=== PATIENT | male | born 1950 | race Caucasian/White ===

== ENCOUNTER 2018-11-12 19:53 | Emergency (ER) | payer OTHER ==
--- OUTSIDE RECORDS SUMMARY | 2018-11-12 19:54 | XMS REPORT | Clinical Summary ---
:1950 Author Organization [facility] Address [address] [place] [address] Care Team Providers Name Role Phone Basilio Tello MD Primary Care Provider Allergies No Known Allergies Medications Medication Sig Dispensed Refills Start Date End Date Status levothyroxine Take 100 mcg by 0 Active (SYNTHROID, LEVOTHROID) mouth daily. 100 MCG tablet omeprazole (PRILOSEC) 20 Take 20 mg by 0 Active MG capsule mouth daily. fexofenadine (SEAMUS) Take 180 mg by 0 Active 180 MG tablet mouth 2 (two) times daily. tamsulosin (FLOMAX) 0.4 Take 0.8 mg by 0 Active mg Cp24 24 hr capsule mouth 2 (two) times daily . buPROPion (WELLBUTRIN Take 450 mg by 0 Active XL) 300 MG 24 hr tablet mouth daily . losartan (COZAAR) 25 MG Take 25 mg by 0 Active tablet mouth daily. metFORMIN (GLUCOPHAGE) Take 500 mg by 0 Active 500 MG tablet mouth daily with breakfast. HYDROcodone-acetaminophe Take 1 tablet by 0 Active n (LORTAB 10-500) 10-500 mouth every 6 mg per tablet (six) hours as needed. carisoprodol (SOMA) 350 Take 350 mg by 0 Active MG tablet mouth 4 (four) times daily as needed. HYDROcodone-acetaminophe Take 1 tablet by 0 Active n (NORCO 10-325) 10-325 mouth every 6 mg per tablet (six) hours as needed for Pain. aspirin 81 MG EC tablet Take 81 mg by 0 Active mouth daily. clopidogrel (PLAVIX) 75 Take 75 mg by 0 Active mg tablet mouth daily. pregabalin (LYRICA) 75 Take 75 mg by 0 Active MG capsule mouth 2 (two) times daily. rosuvastatin (CRESTOR) Take 20 mg by 0 Active 20 MG tablet mouth daily. montelukast (SINGULAIR) Take 10 mg by 0 Active 10 mg tablet mouth nightly. ARIPiprazole (ABILIFY) 5 Take 2 mg by 0 Active MG tablet mouth daily. Active Problems Not on file Social History Tobacco Use Types Packs/Day Years Used Date Never Smoker Smokeless Tobacco: Current User Snuff Tobacco Cessation: Counseling Given: No Comments: PATIENT DIP; 1/d; previously educated Alcohol Use Drinks/Week oz/Week Comments Yes 1 Cans of beer 1.2 14 beers/wk 1 Shots of liquor Sex Assigned at Date Recorded Not on file Job Start Date Occupation Industry Not on file Not on file Not on file Travel History Travel Start Travel End No recent travel history available. Last Filed Vital Signs Not on file Plan of Treatment Not on file Results Not on fileafter 11/11/2017 Insurance Payer Benefit Plan / Group Subscriber ID Type Phone Address HUMANA - MEDICARE MGD HUMANA MEDICARE ADV xxxxxxxxx Maps Contracted CARE Advance Directives For more information, please contact:[address] [phone] Code Status Date Activated Date Inactivated Comments Code ONE 11/02/2013 11:57 AM 11/02/2013 4:38 PM All possible means of support, including: cardiac massage, mechanical ventilation, and defibrillation will be used to support life.
--- OUTSIDE RECORDS SUMMARY | 2018-11-12 19:55 | XMS REPORT ---
:1950 [facility] Address [address] [place] [address] Dr. Winston [address] [place] [address] Care Team Providers Name Role Phone MAXIM BEACH Unavailable Unavailable Problems This patient has no known problems. Allergies, Adverse Reactions, Alerts This patient has no known allergies or adverse reactions. Medications This patient has no known medications. Results Test Description Test Time Test Comments Text Results Atomic Results Result Comments TISSUE EXAM 2016-12-10 18:24:00 Test Item Value Reference Range Comments LAB AP CPT CODE (JANINE) (test [id number]) [id number]
--- OUTSIDE RECORDS SUMMARY | 2018-11-12 19:55 | XMS REPORT | Summary of Care ---
:1950 Author Name SAVANNA FENTON Address [facility] Unavailable , Care Team Providers Name Role Phone TANIA TRAVIS D.O. 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 On: 18-Nov-2018 13:00 Instructions Name Dates Details Instructions not documented Encounters Appointment; TANIA TRAVIS D.O. On: 07-Oct-2018 14:30 Encounter Diagnosis: Problem not documented Appointment; TANIA TRAVIS D.O. On: 05-Nov-2018 8:30 Encounter Diagnosis: Problem not documented
--- NOTE | 2018-11-12 21:26 | RAD REPORT ---
EXAM DESCRIPTION: USExtrem Venous W Compress Bil11/12/2018 9:14 pm CLINICAL HISTORY: Leg pain COMPARISON: August 2018 FINDINGS: A left chods-uti-jaak amputation is present The common femoral, and superficial superficial femoral veins bilaterally are compressible and demons trate augmentation. The right popliteal and posterior tibial veins are compressible and demonstrate augmentation. Doppler demonstrates good flow. Echogenic material consistent with acute thrombus is present within the right lesser saphenous vein w ithin the calf. IMPRESSION: No evidence of deep venous thrombosis involving either lower extremity. Acute thrombus within the lesser saphenous vein within the right calf
--- NOTE | 2018-11-12 22:25 | ER ---
Nurse's Notes [facility] Name: Joey Campos III Age: 68 yrs Sex: Male : 1950 Arrival Date: 11/12/2018 Time: 19:57 Bed 17 Private MD: Basilio Tello Diagnosis: Embolism and thrombosis of superficial veins of right lower extremities Presentation: 11/12 20:22 Presenting complaint: Patient states: knot on right leg behind the knee started ak1 yesterday. pt c/o increased pain and size to area. Transition of care: patient was not received from another setting of care. Onset of symptoms is unknown. Risk Assessment: Do you want to hurt yourself or someone else? Patient reports no desire to harm self or others. Initial Sepsis Screen: Does the patient meet any 2 criteria? No. Patient's initial sepsis screen is negative. Does the patient have a suspected source of infection? No. Patient's initial sepsis screen is negative. Care prior to arrival: pt had sx 11/05/18 on left lower leg. 20:22 Method Of Arrival: Ambulatory ak1 20:22 Acuity: ROSALINDA 3 ak1 Triage Assessment: 20:27 General: Appears in no apparent distress. Behavior is calm, cooperative. ak1 Historical: - Allergies: 20:27 No Known Allergies; ak1 - Home Meds: 20:27 aspirin 81 mg Oral chew 1 tab once daily [Active]; omeprazole 40 mg Oral cpDR 1 cap ak1 once daily [Active]; levothyroxine 100 mcg tab 1 tab once daily [Active]; Flomax 0.4 mg Oral cp24 1 cap BID [Active]; losartan 25 mg oral tab 1 tab once daily [Active]; Crestor 20 mg oral tab 1 tab once daily [Active]; Wellbutrin 300mg Oral daily [Active]; hydrocodone-acetaminophen 10-325 mg Oral tab prn [Active]; - PSHx: 20:27 left BK amputation; ak1 - Immunization history:: Adult Immunizations unknown. - Social history:: Smoking status: Patient/guardian denies using tobacco. - Ebola Screening: : No symptoms or risks identified at this time. Screenin:29 Abuse screen: Denies threats or abuse. Denies injuries from another. Nutritional ak1 screening: No deficits noted. Tuberculosis screening: No symptoms or risk factors identified. Fall Risk Ambulatory Aid- Crutches/Cane/Walker (15 pts). Assessment: 21:44 General: Appears in no apparent distress. Pain: Denies pain. Neuro: No deficits noted. ls4 Cardiovascular: No deficits noted. Respiratory: No deficits noted. GI: No deficits noted. : No deficits noted. Musculoskeletal: Amputation of left leg. Circulation, motion, and sensation intact. Capillary refill < 3 seconds, Range of motion: intact in all extremities, Swelling absent. 22:19 Reassessment: pt standing at ER17 door ready to leave stated ERP was in "15 minuets ak1 ago, what am I waiting for" pt informed that the provider is typing up his discharge papers. Vital Signs: 20:27 BP 112 / 70; Pulse 72; Resp 16; Temp 99.4(O); Pulse Ox 98% on R/A; Weight 86.18 kg (R); ak1 Height 5 ft. 6 in. (167.64 cm) (R); Pain 0/10; 20:27 Body Mass Index 30.67 (86.18 kg, 167.64 cm) ak1 20:27 increased pain with palpation. ak1 ED Course: 19:57 Patient arrived in ED. es 19:58 Basilio Tello MD is Private Physician. es 20:23 Triage completed. ak1 20:27 Arm band placed on Patient placed in waiting room, Patient notified of wait time. ak1 21:06 Ganesh Bullard MD is Attending Physician. gs 21:07 Kalpana Chaudhari, RN is Primary Nurse. ls4 21:07 No provider procedures requiring assistance completed. ls4 21:15 Extrem Venous W Compression Tomás US In Process Unspecified. EDMS 21:48 Patient has correct armband on for positive identification. Bed in low position. Call ls4 light in reach. Side rails up X 1. 22:21 Patient did not have IV access during this emergency room visit. ak1 Administered Medications: No medications were administered Outcome: 22:21 Condition: stable ak1 22:25 Discharge ordered by . gs 22:28 Eloped from patient exam room, Time discovered patient gone: November 12, 2018 at 22:29 ak1 pt was not in room when this nurse returned with discharge papers. 22:28 Discharge instructions given to no instructions given due to pt eloping prior to instructions. 22:30 Patient left the ED. ak1 Signatures: Dispatcher [employer] Yenny Tapia Amber RN RN ak1 Ganesh Bullard MD MD gs Stewart, Lisa, RN RN ls4
--- NOTE | 2018-11-12 22:25 | EDPHYS ---
Physician Documentation [facility] Name: Joey Campos III Age: 68 yrs Sex: Male : 1950 Arrival Date: 11/12/2018 Time: 19:57 Bed 17 Private MD: Basilio Tello ED Physician Ganesh Bullard HPI: 11/12 22:18 This 68 yrs old Male presents to ER via Ambulatory with complaints of Knot on gs back of leg after surgery. 22:18 The patient presents with pain, that is acute. The complaints affect the posterior gs aspect of right knee. Context: small erythematous knot 2x2 cm back of right knee. Onset: The symptoms/episode began/occurred yesterday. Associated signs and symptoms: Pertinent negatives fever, numbness. Severity of symptoms: At their worst the symptoms were moderate, in the emergency department the symptoms are unchanged. The patient has not experienced similar symptoms in the past. The patient has been recently seen by a physician: terese schroeder last week. Historical: - Allergies: 20:27 No Known Allergies; ak1 - Home Meds: 20:27 aspirin 81 mg Oral chew 1 tab once daily [Active]; omeprazole 40 mg Oral cpDR 1 cap ak1 once daily [Active]; levothyroxine 100 mcg tab 1 tab once daily [Active]; Flomax 0.4 mg Oral cp24 1 cap BID [Active]; losartan 25 mg oral tab 1 tab once daily [Active]; Crestor 20 mg oral tab 1 tab once daily [Active]; Wellbutrin 300mg Oral daily [Active]; hydrocodone-acetaminophen 10-325 mg Oral tab prn [Active]; - PSHx: 20:27 left BK amputation; ak1 - Immunization history:: Adult Immunizations unknown. - Social history:: Smoking status: Patient/guardian denies using tobacco. - Ebola Screening: : No symptoms or risks identified at this time. ROS: 22:18 All other systems are negative. gs Exam: 22:18 Cardiovascular: Regular rate and rhythm with a normal S1 and S2. No gallops, murmurs, gs or rubs. Normal PMI, no JVD. No pulse deficits. Respiratory: Lungs have equal breath sounds bilaterally, clear to auscultation and percussion. No rales, rhonchi or wheezes noted. No increased work of breathing, no retractions or nasal flaring. Abdomen/GI: Soft, non-tender, with normal bowel sounds. No distension or tympany. No guarding or rebound. No evidence of tenderness throughout. Back: No spinal tenderness. No costovertebral tenderness. Full range of motion. 22:18 Constitutional: The patient appears alert, awake. 22:18 Musculoskeletal/extremity: ROM: no acute changes, Circulation is intact in all extremities. Sensation intact. small tender mass with erythema back of r knee 2x2 cm. Vital Signs: 20:27 BP 112 / 70; Pulse 72; Resp 16; Temp 99.4(O); Pulse Ox 98% on R/A; Weight 86.18 kg (R); ak1 Height 5 ft. 6 in. (167.64 cm) (R); Pain 0/10; 20:27 Body Mass Index 30.67 (86.18 kg, 167.64 cm) ak1 20:27 increased pain with palpation. ak1 MDM: 22:08 Patient medically screened. gs 22:18 Data reviewed: vital signs, nurses notes. Counseling: I had a detailed discussion with gs the patient and/or guardian regarding: the historical points, exam findings, and any diagnostic results supporting the discharge/admit diagnosis, radiology results, the need for outpatient follow up. Response to treatment: the patient's symptoms have markedly improved after treatment, and as a result, I will discharge patient. 11/12 20:33 Order name: Extrem Venous W Compression Tomás US; Complete Time: 22:26 ak1 Administered Medications: No medications were administered Disposition: 11/12/18 22:25 Discharged to Home. Impression: Embolism and thrombosis of superficial veins of right lower extremities. - Condition is Stable. - Discharge Instructions: Phlebitis, Evkj-rd-Smtv. - Medication Reconciliation Form, Thank You Letter, Antibiotic Education, Prescription Opioid Use form. - Follow up: Private Physician; When: 2 - 3 days; Reason: Re-evaluation by your physician. Signatures: Dispatcher [employer] Carole Wayne RN RN ak1 Ganesh Bullard MD MD Corrections: (The following items were deleted from the chart) 22:30 22:25 11/12/2018 22:25 Discharged to Home. Impression: Embolism and thrombosis of ak1 superficial veins of right lower extremities. Condition is Stable. Forms are Medication Reconciliation Form, Thank You Letter, Antibiotic Education, Prescription Opioid Use. Follow up: Private Physician; When: 2 - 3 days; Reason: Re-evaluation by your physician. gs
[2018-11-12 23:36] VITALS: BP 112/70; TEMP 99.4; O2SAT 98
== END 2018-11-12 22:30 | disposition home or self-care (01) ==
LOC: ER 19:53
DX: I82.811 Embolism and thrombosis of superficial veins of right lower extremity (principal); Z79.82 Long term (current) use of aspirin; Z79.899 Other long term (current) drug therapy; Z89.512 Acquired absence of left leg below knee
CPT/HCPCS: 93970

== ENCOUNTER 2019-01-22 09:47 | Emergency (ER) | payer OTHER ==
--- OUTSIDE RECORDS SUMMARY | 2019-01-22 09:50 | XMS REPORT | Clinical Summary ---
:1950 Author Organization [facility] Address [address] [place] [address] Care Team Providers Name Role Phone Basilio [...] Not on file Results Not on fileafter 01/21/2018 Insurance Payer Benefit Plan / Group Subscriber ID Type Phone Address HUMANA - MEDICARE MGD HUMANA MEDICARE ADV xxxxxxxxx Maps Contracted CARE Advance Directives For more information, please contact:[address] [phone] Code Status Date Activated Date Inactivated Comments Code ONE 11/02/2013 11:57 AM 11/02/2013 4:38 PM All possible means of support, including: cardiac massage, mechanical ventilation, and defibrillation will be used to support life.
--- OUTSIDE RECORDS SUMMARY | 2019-01-22 09:50 | XMS REPORT ---
:1950 [facility] Address [address] [place] [address] Dr. Winston [address] [place] [address] Care Team Providers Name Role Phone MAXIM [...] Comments LAB AP CPT CODE (JANINE) (test [id number]=[id number]) [id number]
[2019-01-22] MEDS ORDERED: TETANUS & DIPHTHERIA TOX,ADULT 0.5 ML VIAL ONE (10:19)
--- NOTE | 2019-01-22 10:58 | RAD REPORT ---
EXAM DESCRIPTION: RAD - Hand Right 3 View - 01/22/2019 10:23 am CLINICAL HISTORY: Trauma, hand pain, distal second digit laceration COMPARISON: None. FINDINGS: No fracture is identified. There is no dislocation or periosteal reaction noted. Soft tis lizz injury is present. No foreign body identified. No acute or significant bone, joint or soft tissue finding elsewhere in the right hand. Degenerative bone changes are present at the MCP and IP joints. IMPRESSION: No distal second digit fracture. No foreign body.
--- NOTE | 2019-01-22 11:43 | ER ---
Nurse's Notes [facility] Name: Joey Campos III Age: 68 yrs Sex: Male : 1950 Arrival Date: 01/22/2019 Time: 09:50 Bed 19 Private MD: Basilio Tello Diagnosis: Laceration without foreign body of right index finger with damage to nail Presentation: 01/22 10:03 Presenting complaint: Patient states: cut tip of right index finger with table saw at iw 10 am yesterday. Transition of care: patient was not received from another setting of care. Onset of symptoms was January 21, 2019. Risk Assessment: Do you want to hurt yourself or someone else? Patient reports no desire to harm self or others. Initial Sepsis Screen: Does the patient meet any 2 criteria? No. Patient's initial sepsis screen is negative. Does the patient have a suspected source of infection? No. Patient's initial sepsis screen is negative. Care prior to arrival: Bleeding of injury controlled. Injury dressed. 10:03 Method Of Arrival: Ambulatory iw 10:03 Acuity: ROSALINDA 4 iw Historical: - Allergies: 10:06 No Known Allergies; iw - Home Meds: 10:06 aspirin 81 mg Oral chew 1 tab once daily [Active]; Crestor 20 mg Oral tab 1 tab once iw daily [Active]; Flomax 0.4 mg Oral cp24 1 cap BID [Active]; hydrocodone-acetaminophen 10-325 mg Oral tab PRN [Active]; levothyroxine 100 mcg tab 1 tab once daily [Active]; losartan 25 mg Oral tab 1 tab once daily [Active]; omeprazole 40 mg Oral cpDR 1 cap once daily [Active]; Wellbutrin 300mg Oral daily [Active]; - PMHx: 10:33 Hypothyroidism; Hypertension; Hyperlipidemia; jl7 - PSHx: 10:06 left BK amputation; iw - Immunization history:: Adult Immunizations Last tetanus immunization: unknown. - Social history:: Smoking status: Patient/guardian denies using tobacco. - Ebola Screening: : Patient negative for fever greater than or equal to 101.5 degrees Fahrenheit, and additional compatible Ebola Virus Disease symptoms Patient denies exposure to infectious person Patient denies travel to an Ebola-affected area in the 21 days before illness onset No symptoms or risks identified at this time. Screenin:33 Abuse screen: Denies threats or abuse. Denies injuries from another. Nutritional jl7 screening: No deficits noted. Tuberculosis screening: No symptoms or risk factors identified. Fall Risk None identified. Assessment: 10:15 General: Appears in no apparent distress. uncomfortable, Behavior is calm, cooperative, jl7 appropriate for age. Pain: Complains of pain in dorsal aspect of distal phalanx of right index finger and palmar aspect of distal phalanx of right index finger. Neuro: Level of Consciousness is awake, alert, obeys commands, Oriented to person, place, time, situation. Cardiovascular: Patient's skin is warm and dry. Respiratory: Airway is patent Respiratory effort is even, unlabored, Respiratory pattern is regular, symmetrical. GI: No signs and/or symptoms were reported involving the gastrointestinal system. : No signs and/or symptoms were reported regarding the genitourinary system. EENT: No signs and/or symptoms were reported regarding the EENT system. Derm: Skin is pink, warm \T\ dry. Musculoskeletal: Range of motion: intact in all extremities. Injury Description: Laceration sustained to dorsal aspect of distal phalanx of right index finger and palmar aspect of distal phalanx of right index finger is contaminated, jagged, 0.5 to 2.5 cm long, was sustained 12-24 hours ago. a small amount of bleeding noted at this time. Vital Signs: 10:04 BP 142 / 71; Pulse 63; Resp 16 S; Temp 97.1(TE); Pulse Ox 97% on R/A; Pain 6/10; iw ED Course: 09:50 Patient arrived in ED. mr 09:50 Basilio Tello MD is Private Physician. mr 09:55 Noe Royal [facility]. pm1 09:55 Maurizio Maxwell MD is Attending Physician. pm1 10:04 Triage completed. iw 10:04 Arm band placed on. iw 10:06 Toby Morin RN is Primary Nurse. jl7 10:18 X-ray completed. Portable x-ray completed in exam room. Patient tolerated procedure sw well. 10:21 Hand Right 3 View XRAY In Process Unspecified. EDMS 10:33 Patient has correct armband on for positive identification. Bed in low position. Call jl7 light in reach. Side rails up X 1. Pulse ox on. NIBP on. 10:33 Wound care: to laceration located on palmar aspect of distal phalanx of right index jl7 finger and dorsal aspect of distal phalanx of right index finger was cleaned with soap and water, soaked in normal saline solution, dressed with band aid. 11:42 Giovani Durbin MD is Referral Physician. pm1 12:11 No provider procedures requiring assistance completed. Patient did not have IV access iw during this emergency room visit. Administered Medications: 10:34 Drug: Tetanus-Diphtheria Toxoid Adult 0.5 ml {Legal Billing Specialist: [employer]. Exp: jl7 12/10/2020. Lot #: [id number]. } Route: IM; Site: left deltoid; 10:50 Follow up: Response: No adverse reaction jl7 Outcome: 11:42 Discharge ordered by . pm1 12:11 Discharged to home ambulatory, with family. iw 12:11 Condition: good 12:11 Discharge instructions given to patient, family, Instructed on discharge instructions, follow up and referral plans. medication usage, Demonstrated understanding of instructions, follow-up care, medications, Prescriptions given X 1. 12:11 Patient left the ED. iw Signatures: Dispatcher [employer] Vira Ozuna Irene, RN RN Denise Jean Patrick, [employer] pm1 Toby Morin RN RN jl7
--- NOTE | 2019-01-22 11:43 | EDPHYS ---
Physician Documentation [facility] Name: Joey Campos III Age: 68 yrs Sex: Male : 1950 Arrival Date: 01/22/2019 Time: 09:50 Bed 19 Private MD: Basilio Tello ED Physician Maurizio Maxwell HPI: 01/22 10:35 This 68 yrs old Male presents to ER via Ambulatory with complaints of Finger pm1 Injury. 10:35 The patient has a laceration related to: working on table saw occurred at home, and pm1 Laceration occurred 24 hours prior to arrival. The laceration(s) is(are) located on the medial aspect of distal phalanx of right index finger. Onset: The symptoms/episode began/occurred yesterday. Associated signs and symptoms: Pertinent negatives: deformity, heavy bleeding, numbness distal to injury, suspected foreign body. The patient has not experienced similar symptoms in the past. The patient has not recently seen a physician. Historical: - Allergies: 10:06 No Known Allergies; iw - Home Meds: 10:06 aspirin 81 mg Oral chew 1 tab once daily [Active]; Crestor 20 mg Oral tab 1 tab once iw daily [Active]; Flomax 0.4 mg Oral cp24 1 cap BID [Active]; hydrocodone-acetaminophen 10-325 mg Oral tab PRN [Active]; levothyroxine 100 mcg tab 1 tab once daily [Active]; losartan 25 mg Oral tab 1 tab once daily [Active]; omeprazole 40 mg Oral cpDR 1 cap once daily [Active]; Wellbutrin 300mg Oral daily [Active]; - PMHx: 10:33 Hypothyroidism; Hypertension; Hyperlipidemia; jl7 - PSHx: 10:06 left BK amputation; iw - Immunization history:: Adult Immunizations Last tetanus immunization: unknown. - Social history:: Smoking status: Patient/guardian denies using tobacco. - Ebola Screening: : Patient negative for fever greater than or equal to 101.5 degrees Fahrenheit, and additional compatible Ebola Virus Disease symptoms Patient denies exposure to infectious person Patient denies travel to an Ebola-affected area in the 21 days before illness onset No symptoms or risks identified at this time. ROS: 10:35 Constitutional: Negative for fever, chills, and weight loss, Neck: Negative for injury, pm1 pain, and swelling, Cardiovascular: Negative for chest pain, palpitations, and edema, Respiratory: Negative for shortness of breath, cough, wheezing, and pleuritic chest pain, Abdomen/GI: Negative for abdominal pain, nausea, vomiting, diarrhea, and constipation, Back: Negative for injury and pain, : Negative for injury, bleeding, discharge, and swelling. 10:35 Neuro: Negative for headache, weakness, numbness, tingling, and seizure. 10:35 MS/extremity: Positive for laceration, pain, of the mediall aspect of distal phalanx of right index finger, Negative for decreased range of motion, deformity. 10:35 Skin: Positive for laceration(s). Exam: 10:35 Constitutional: This is a well developed, well nourished patient who is awake, alert, pm1 and in no acute distress. Head/Face: Normocephalic, atraumatic. Chest/axilla: Normal chest wall appearance and motion. Nontender with no deformity. No lesions are appreciated. Cardiovascular: Regular rate and rhythm with a normal S1 and S2. No gallops, murmurs, or rubs. Normal PMI, no JVD. No pulse deficits. Respiratory: Lungs have equal breath sounds bilaterally, clear to auscultation and percussion. No rales, rhonchi or wheezes noted. No increased work of breathing, no retractions or nasal flaring. Abdomen/GI: Soft, non-tender, with normal bowel sounds. No distension or tympany. No guarding or rebound. No evidence of tenderness throughout. Back: No spinal tenderness. No costovertebral tenderness. Full range of motion. 10:35 MS/ Extremity: Pulses equal, no cyanosis. Neurovascular intact. Full, normal range of motion. 10:35 Skin: Appearance: normal except for affected area, injury, laceration(s), the wound is approximately 1 cm(s), with a depth of .2 cm(s), of the medial aspect of distal phalanx of right index finger, distal end of medial aspect of finger nail with longitudinal fracture, right second nail bed intact. 10:35 Neuro: Orientation: is normal, Motor: is normal, moves all fours. Vital Signs: 10:04 BP 142 / 71; Pulse 63; Resp 16 S; Temp 97.1(TE); Pulse Ox 97% on R/A; Pain 6/10; iw MDM: 09:55 Patient medically screened. pm1 11:40 Data reviewed: vital signs. Data interpreted: Pulse oximetry: on room air is 97 %. pm1 Interpretation: normal. Counseling: I had a detailed discussion with the patient and/or guardian regarding: the historical points, exam findings, and any diagnostic results supporting the discharge/admit diagnosis, radiology results, the need for outpatient follow up, a hand specialist, to return to the emergency department if symptoms worsen or persist or if there are any questions or concerns that arise at home. 01/22 10:01 Order name: Hand Right 3 View XRAY; Complete Time: 11:02 pm1 01/22 10:01 Order name: Wound Care; Complete Time: 10:27 pm1 Administered Medications: 10:34 Drug: Tetanus-Diphtheria Toxoid Adult 0.5 ml {Emergency Room Clinician: [employer]. Exp: jl7 12/10/2020. Lot #: [id number]. } Route: IM; Site: left deltoid; 10:50 Follow up: Response: No adverse reaction jl7 Disposition: 15:14 Co-signature as Attending Physician, Maurizio Maxwell MD. rn Disposition: 01/22/19 11:42 Discharged to Home. Impression: Laceration without foreign body of right index finger with damage to nail. - Condition is Stable. - Discharge Instructions: Laceration Care, Adult, Nonsutured Laceration Care. - Prescriptions for Keflex 500 mg Oral Capsule - take 1 capsule by ORAL route every 6 hours for 10 days; 40 capsule. - Medication Reconciliation Form, Thank You Letter, Antibiotic Education, Prescription Opioid Use form. - Follow up: Emergency Department; When: As needed; Reason: Worsening of condition. Follow up: Giovani Durbin MD; When: 2 - 3 days; Reason: Recheck today's complaints, Continuance of care, Re-evaluation by your physician. - Problem is new. - Symptoms have improved. Signatures: Dispatcher [employer] Carline Mariee RN RN iw Nieto, Roman, MD MD rn Marinas, Patrick, TRANSMISSION REPAIRER TRANSMISSION REPAIRER pm1 Toby Morin RN RN jl7 Corrections: (The following items were deleted from the chart) 12:11 11:42 01/22/2019 11:42 Discharged to Home. Impression: Laceration without foreign body iw of right index finger with damage to nail. Condition is Stable. Forms are Medication Reconciliation Form, Thank You Letter, Antibiotic Education, Prescription Opioid Use. Follow up: Emergency Department; When: As needed; Reason: Worsening of condition. Follow up: Giovani Durbin; When: 2 - 3 days; Reason: Recheck today's complaints, Continuance of care, Re-evaluation by your physician. Problem is new. Symptoms have improved. pm1
[2019-01-22 13:14] VITALS: BP 142/71; TEMP 97.1; O2SAT 97
== END 2019-01-22 12:11 | disposition home or self-care (01) ==
LOC: ER 09:47
DX: S61.310A Laceration without foreign body of right index finger with damage to nail, initial encounter (principal); W29.8XXA Contact with other powered hand tools and household machinery, initial encounter; Y93.89 Activity, other specified; Y92.009 Unspecified place in unspecified non-institutional (private) residence as the place of occurrence of the external cause; I10 Essential (primary) hypertension; Z23 Encounter for immunization; Z79.82 Long term (current) use of aspirin; E78.5 Hyperlipidemia, unspecified; E03.9 Hypothyroidism, unspecified
CPT/HCPCS: 90714; 99284

== ENCOUNTER 2021-04-09 20:42 | Emergency (ER) | payer OTHER ==
[2021-04-09 22:53] LABS: Absolute Lymphocytes (CBC) 1.7 K/uL (0.7-4.9); Basophils % 0.4 % (0-1.3); Hematocrit 35.3 % (39.6-49.0); Lymphocytes % 26.9 % (15.3-44.8); MPV 8.2 fL (7.6-11.3); RBC Red Blood Cell Count 3.76 M/uL (4.33-5.43)
[2021-04-09 23:21] LABS: ALT/SGPT 25 U/L (12-78); AST/SGOT 19 U/L (15-37); Albumin 3.4 g/dL (3.4-5.0); Alkaline Phosphatase 79 U/L (45-117); BUN Blood Urea Nitrogen 11 mg/dL (7-18); Bicarbonate 28 mmol/L (21-32); Bilirubin Direct < 0.1 mg/dL (0-0.2); Bilirubin Total 0.2 mg/dL (0.2-1.0); Glucose Level 79 mg/dL (74-106); Protein, Total 6.5 g/dL (6.4-8.2); Sodium Level 146 mmol/L (136-145)
[2021-04-09 23:22] LABS: Lipase 51 U/L (73-393); NT PRO-BNP 114 pg/mL (<125)
[2021-04-09] MEDS ORDERED: CLINDAMYCIN 600MG/D5W 600 MG/50 ML BAG IV ONE (23:25)
--- NOTE | 2021-04-09 23:46 | EDPHYS ---
Physician Documentation [facility] Name: Joey Campos III Age: 70 yrs Sex: Male : 1950 Arrival Date: 04/09/2021 Time: 20:49 Bed 13 Private MD: ED Physician Moy Valentin Historical: - Allergies: 04/09 20:59 No Known Allergies; vg1 - Home Meds: 20:59 aspirin 81 mg Oral chew 1 tab once daily [Active]; Crestor 20 mg Oral tab 1 tab once vg1 daily [Active]; Flomax 0.4 mg Oral cp24 1 cap BID [Active]; hydrocodone-acetaminophen 10-325 mg Oral tab PRN [Active]; levothyroxine 100 mcg tab 1 tab once daily [Active]; losartan 25 mg Oral tab 1 tab once daily [Active]; omeprazole 40 mg Oral cpDR 1 cap once daily [Active]; Wellbutrin 300mg Oral daily [Active]; Spironolactone Oral [Active]; Prozac Oral [Active]; - PMHx: 20:59 Hyperlipidemia; Hypertension; Hypothyroidism; vg1 - PSHx: 21:00 Left BKA; vg1 - Immunization history:: Adult Immunizations up to date, Client reports receiving the 2nd dose of the Covid vaccine. - Social history:: Smoking status: Patient reports use of chewing tobacco. Vital Signs: 20:51 BP 121 / 60; Pulse 62; Resp 18; Temp 98.5; Pulse Ox 98% ; Weight 86.18 kg; Height 5 ft. vg1 6 in. (167.64 cm); Pain 0/10; 22:36 BP 106 / 58; Pulse 55; Resp 16 S; Pulse Ox 98% on R/A; Pain 0/10; ad5 04/10 00:08 BP 102 / 59; Pulse 56; Resp 16 S; Pulse Ox 97% on R/A; Pain 0/10; ad5 04/09 20:51 Body Mass Index 30.67 (86.18 kg, 167.64 cm) vg1 MDM: 04/09 21:54 Patient medically screened. tw04/09 22:04 Order name: Basic Metabolic Panel; Complete Time: 23:41 tw4 04/09 23:41 Interpretation: Normal except: NA 146; CL 112; GFR 61. tw4 04/09 22:04 Order name: CBC with Diff; Complete Time: 23:41 [facility] 04/09 23:41 Interpretation: Normal except: RBC 3.76; HGB 12.3; HCT 35.3. [facility] 04/09 22:04 Order name: Hepatic Function; Complete Time: 23:41 [facility] 04/09 22:04 Order name: Lipase; Complete Time: 23:41 [facility] 04/09 23:41 Interpretation: Normal except: LIP 51. [facility] 04/09 22:51 Order name: NT PRO-BNP; Complete Time: 23:41 [facility] 04/09 23:41 Interpretation: Within normal limits: NT PRO-BNP 114. [facility] 04/09 22:04 Order name: Extremity Venous Uni Ltd [facility] 04/09 22:04 Order name: IV Saline Lock; Complete Time: 22:22 [facility] 04/09 22:04 Order name: Labs collected and sent; Complete Time: 22:22 tw4 Administered Medications: 23:10 Drug: Cleocin (clindamycin) 600 mg Route: IVPB; Infused Over: 30 mins; Site: right ad5 antecubital; 04/10 00:01 Follow up: IV Status: Completed infusion; IV Intake: 50ml ad5 Disposition: 04/09/21 23:44 Discharged to Home. Impression: Edema, not elsewhere classified, Localized swelling, mass and lump, right lower limb, Cellulitis of left lower limb. - Condition is Stable. - Discharge Instructions: Cellulitis, Adult, Peripheral Edema. - Prescriptions for Cleocin 300 mg Oral Capsule - take 1 capsule by ORAL route every 6 hours for 10 days; 40 capsule. - Medication Reconciliation Form, Thank You Letter, Antibiotic Education, Prescription Opioid Use form. - Follow up: Private Physician; When: Upon discharge from the Emergency Department; Reason: Recheck today's complaints, Continuance of care, Re-evaluation by your physician. - Problem is new. - Symptoms are unchanged. Signatures: Dispatcher [employer] [facility] Moy Valentin MD MD tw4 Meme Apodaca RN RN vg1 José Miguel Laguerre ad5 Corrections: (The following items were deleted from the chart) 04/09 22:51 22:49 PROBNP+C.LAB.BRZ ordered. [facility] 04/10 00:09 04/09 23:44 04/09/2021 23:44 Discharged to Home. Impression: Edema, not elsewhere ad5 classified; Localized swelling, mass and lump, right lower limb; Cellulitis of left lower limb. Condition is Stable. Forms are Medication Reconciliation Form, Thank You Letter, Antibiotic Education, Prescription Opioid Use. Follow up: Private Physician; When: Upon discharge from the Emergency Department; Reason: Recheck today's complaints, Continuance of care, Re-evaluation by your physician. Problem is new. Symptoms are unchanged. tw4
--- NOTE | 2021-04-09 23:46 | ER ---
Nurse's Notes [facility] Name: Joey Campos III Age: 70 yrs Sex: Male : 1950 Arrival Date: 04/09/2021 Time: 20:49 Bed 13 Private MD: Diagnosis: Edema, not elsewhere classified;Localized swelling, mass and lump, right lower limb;Cellulitis of left lower limb Presentation: 04/09 20:51 Chief complaint: Patient states: Right leg swelling that began about 2 days ago and pt vg1 reports having a blister that popped on the Left BKA and states that it is still 'oozing liquid'. Coronavirus screen: Client denies travel out of the [place] in the last 14 days. Ebola Screen: Patient negative for fever greater than or equal to 101.5 degrees Fahrenheit, and additional compatible Ebola Virus Disease symptoms. Initial Sepsis Screen: Does the patient meet any 2 criteria?. Initial Sepsis Screen: Does the patient have a suspected source of infection? No. Patient's initial sepsis screen is negative. Risk Assessment: Do you want to hurt yourself or someone else? Patient reports no desire to harm self or others. Onset of symptoms was April 07, 2021. 20:51 Method Of Arrival: Ambulatory vg1 20:51 Acuity: ROSALINDA 3 vg1 Triage Assessment: 21:00 General: Appears in no apparent distress. comfortable, Behavior is calm, cooperative. vg1 Pain: Denies pain. Historical: - Allergies: 20:59 No Known Allergies; vg1 - Home Meds: 20:59 aspirin 81 mg Oral chew 1 tab once daily [Active]; Crestor 20 mg Oral tab 1 tab once vg1 daily [Active]; Flomax 0.4 mg Oral cp24 1 cap BID [Active]; hydrocodone-acetaminophen 10-325 mg Oral tab PRN [Active]; levothyroxine 100 mcg tab 1 tab once daily [Active]; losartan 25 mg Oral tab 1 tab once daily [Active]; omeprazole 40 mg Oral cpDR 1 cap once daily [Active]; Wellbutrin 300mg Oral daily [Active]; Spironolactone Oral [Active]; Prozac Oral [Active]; - PMHx: 20:59 Hyperlipidemia; Hypertension; Hypothyroidism; vg1 - PSHx: 21:00 Left BKA; vg1 - Immunization history:: Adult Immunizations up to date, Client reports receiving the 2nd dose of the Covid vaccine. - Social history:: Smoking status: Patient reports use of chewing tobacco. Screenin:36 Abuse screen: Denies threats or abuse. Denies injuries from another. Nutritional ad5 screening: No deficits noted. Tuberculosis screening: No symptoms or risk factors identified. Fall Risk None identified. Assessment: 22:31 General: Appears in no apparent distress. Behavior is calm, cooperative, appropriate ad5 for age. Neuro: No deficits noted. Level of Consciousness is awake, alert, obeys commands, Oriented to person, place, time, situation, Appropriate for age. Cardiovascular: Reports RLE edema Heart tones present Capillary refill < 3 seconds Patient's skin is warm and dry. Rhythm is regular. Respiratory: No deficits noted. Airway is patent Respiratory effort is even, unlabored, Respiratory pattern is regular, symmetrical. GI: No deficits noted. No signs and/or symptoms were reported involving the gastrointestinal system. : No deficits noted. No signs and/or symptoms were reported regarding the genitourinary system. EENT: No deficits noted. No signs and/or symptoms were reported regarding the EENT system. Derm: Wound noted blister noted to L knee; BKA to L side, recent "surgery to remove scar tissue", well healing surgical scar noted to area. Musculoskeletal: No deficits noted. No signs and/or symptoms reported regarding the musculoskeletal system. 23:14 Reassessment: Patient appears in no apparent distress at this time. Patient and/or ad5 family updated on plan of care and expected duration. Pain level reassessed. Patient is alert, oriented x 3, equal unlabored respirations, skin warm/dry/pink. 04/10 00:07 Reassessment: Patient appears in no apparent distress at this time. Patient and/or ad5 family updated on plan of care and expected duration. Pain level reassessed. Patient is alert, oriented x 3, equal unlabored respirations, skin warm/dry/pink. Vital Signs: 04/09 20:51 BP 121 / 60; Pulse 62; Resp 18; Temp 98.5; Pulse Ox 98% ; Weight 86.18 kg; Height 5 ft. vg1 6 in. (167.64 cm); Pain 0/10; 22:36 BP 106 / 58; Pulse 55; Resp 16 S; Pulse Ox 98% on R/A; Pain 0/10; ad5 04/10 00:08 BP 102 / 59; Pulse 56; Resp 16 S; Pulse Ox 97% on R/A; Pain 0/10; ad5 04/09 20:51 Body Mass Index 30.67 (86.18 kg, 167.64 cm) 1 ED Course: 04/09 20:49 Patient arrived in ED. vg1 20:58 Triage completed. vg1 21:00 Arm band placed on. vg1 21:53 José Miguel Laguerre is Primary Nurse. ad5 21:54 Moy Valentin MD is Attending Physician. tw4 22:22 Extremity Venous Uni Ltd US Sent. ad5 22:31 No provider procedures requiring assistance completed. Initial lab(s) drawn, by ct, ad5 sent to lab. Inserted saline lock: 20 gauge in right antecubital area, using aseptic technique. Blood collected. 22:36 Patient has correct armband on for positive identification. Bed in low position. Call ad5 light in reach. Side rails up X 1. Adult w/ patient. Pulse ox on. NIBP on. 22:38 Extremity Venous Uni Ltd US In Process Unspecified. EDUT 04/10 00:08 IV discontinued, intact, bleeding controlled, No redness/swelling at site. Pressure ad5 dressing applied. Administered Medications: 04/09 23:10 Drug: Cleocin (clindamycin) 600 mg Route: IVPB; Infused Over: 30 mins; Site: right ad5 antecubital; 04/10 00:01 Follow up: IV Status: Completed infusion; IV Intake: 50ml ad5 Intake: 00:01 IV: 50ml; Total: 50ml. ad5 Outcome: 04/09 23:44 Discharge ordered by . tw 04/10 00:08 Discharged to home ambulatory, with significant other. ad5 Condition: stable Discharge instructions given to patient, Instructed on discharge instructions, follow up and referral plans. medication usage, Demonstrated understanding of instructions, follow-up care, medications. 00:09 Patient left the ED. ad5 Signatures: Dispatcher [employer] [facility] Moy Valentin MD MD tw4 Meme Apodaca, RN RN vg1 José Miguel Laguerre ad5
[2021-04-10 00:50] VITALS: BP 102/59; TEMP 98.5; O2SAT 97
--- NOTE | 2021-04-10 06:51 | RAD REPORT ---
EXAM DESCRIPTION: US - Extremity Venous Uni Ltd - 04/09/2021 10:38 pm CLINICAL HISTORY: SWELLING COMPARISON: None. TECHNIQUE: Real-time sonographic evaluation of the right lower extremity deep venous systems was per formed. FINDINGS: Normal compressibility, flow augmentation, phasic flow and spontaneous flow are identified in the right lower extremity common femoral, superficial femoral, popliteal and posterior tibial vei ns. No intraluminal filling defects seen. IMPRESSION: No DVT in the right lower extremity.
== END 2021-04-10 00:09 | disposition home or self-care (01) ==
LOC: ER 20:42
DX: L03.116 Cellulitis of left lower limb (principal); R22.41 Localized swelling, mass and lump, right lower limb; I10 Essential (primary) hypertension; E78.5 Hyperlipidemia, unspecified; E03.9 Hypothyroidism, unspecified; Z79.82 Long term (current) use of aspirin
CPT/HCPCS: 36415; 80048; 80076; 83690; 83880; 85025; 93971; 96365; 99284

== ENCOUNTER 2025-01-18 14:02 | Inpatient (IN) | payer OTHER ==
--- NOTE | 2025-01-18 15:43 | RAD REPORT ---
EXAMINATION: ONE VIEW CHEST XR CLINICAL INDICATION: Male, 74 years old.,CHEST PAIN TECHNIQUE: Frontal chest projection is submitted. Examination is limited by patient positioning and t echnique. COMPARISON: 04/03/2019 FINDINGS: The lungs are well inflated and clear. Bilateral atelectasis. No pneumothorax or sizable effusion. Th e heart is normal in size. Mediastinal contours are unremarkable. IMPRESSION: No acute intrathoracic abnormalities.
[2025-01-18 17:27] LABS: Albumin 3.8 g/dL (3.4-5.0); Albumin/Globulin Ratio 0.9 (1.1-1.8); Anion Gap 11.9 mEq/L (5.0-15.0); Bilirubin Direct 0.2 mg/dL (0-0.2); Bilirubin Indirect, Calculated 0.4 mg/dL (0.2-0.8); Bilirubin Total 0.6 mg/dL (0.2-1.0); Globulin 4.1 g/dL (2.3-3.5); Magnesium 2.2 mg/dL (1.6-2.4); Potassium 3.9 mEq/L (3.5-5.1); Protein, Total 7.9 g/dL (6.4-8.2); Troponin High Sensitivity 4.5 pg/mL (<58.9)
[2025-01-18 18:20] LABS: Absolute Basophils 0.1 K/uL (0-0.5); Absolute Eosinophils 0.3 K/uL (0-0.5); Absolute Lymphocytes (CBC) 2.2 K/uL (0.7-4.9); Absolute Neutrophil 6.5 K/uL (1.8-8.0); Basophils % 1.1 % (0-1.3); Eosinophils % 2.6 % (0-4.4); Hematocrit 42.1 % (39.6-49.0); Hemoglobin 14.2 g/dL (13.6-17.9); Lymphocytes % 21.7 % (15.3-44.8); MCH 31.9 pg (27.0-35.0); MCHC 33.7 g/dL (32.0-36.0); MCV 94.6 fL (80-100); MPV 7.5 fL (7.6-11.3); Neutrophils % 64.6 % (41.7-73.7); Platelets 160 thou/uL (152-406); RBC Red Blood Cell Count 4.46 M/uL (4.33-5.43); Red Cell Distribution Width 14.2 % (12.1-15.2)
--- NOTE | 2025-01-18 19:58 | RAD REPORT ---
EXAM: CT Chest For Pe Angio TECHNIQUE: CT angiogram of the chest was performed following intravenous contrast administration, inc luding sagittal and coronal as well as maximum intensity projection reformats. One or more of the following dose reduction techniques were used: Automated exposure control, adjustment of the mA and k V according to patient size, and iterative reconstruction. Unless otherwise specified, incidental findings do not require dedicated imaging follow-up. INDICATION: CHEST PAIN COMPARISON: 06/02/2019. FINDINGS: LINES/TUBES: None. PULMONARY ARTERIES: Main pulmonary arteries are normal in caliber. Occlusive and subocclusive emboli starting at the first order branches to the right lower lobe, and less abundant emboli along branches to the right middle lobe. Subocclusive emboli at the third order branches to the right upper lobe. LUNGS AND AIRWAYS: The lungs and central airways are normal without focal abnormality. PLEURA: No effusion or pneumothorax. HEART AND MEDIASTINUM: The visualized thyroid gland is normal. No mediastinal, hilar, or axillary lym phadenopathy. Heart is unremarkable without evidence of right heart strain. No pericardial effusion. SOFT TISSUES AND BONES: No acute osseous abnormality. No significant soft tissue finding. UPPER ABDOMEN: Unremarkable. IMPRESSION: Right pulmonary emboli as above, most abundant, and including some occlusive emboli along branches to the right lower lobe, starting at the first order branch. No evidence of right heart strain. THIS REPORT CONTAINS FINDINGS THAT MAY BE CRITICAL TO PATIENT CARE. The findings were verbally commun icated via telephone to REE Cano on 01/18/2025 7:55 PM.
--- NOTE | 2025-01-18 20:02 | ER ---
Nurse's Notes [facility] Name: Joey Campos III Age: 74 yrs Sex: Male : 1950 Arrival Date: 01/18/2025 Time: 14:02 Bed 23 Private MD: Diagnosis: Pulmonary embolism without acute cor pulmonale Presentation: 01/18 14:32 Chief complaint: Patient states: c/o pain on inhalation to right anterior chest that me1 started Friday. Pain level 2/10. Coronavirus screen: Vaccine status: Patient reports receiving the 2nd dose of the covid vaccine. Ebola Screen: No symptoms or risks identified at this time. Initial Sepsis Screen: Does the patient meet any 2 criteria? No. Patient's initial sepsis screen is negative. Does the patient have a suspected source of infection? No. Patient's initial sepsis screen is negative. Risk Assessment: Do you want to hurt yourself or someone else? Patient reports no desire to harm self or others. Onset of symptoms was December 27, 2024. 14:32 Method Of Arrival: [facility] 14:32 Acuity: ROSALINDA 3 me1 Historical: - Allergies: 14:35 No Known Allergies; me1 - PMHx: 14:35 Hyperlipidemia; Hypertension; Hypothyroidism; me1 - PSHx: 14:35 Cholecystectomy; Left BKA; me1 - Immunization history:: Adult Immunizations up to date. - Infectious Disease History:: Denies. - Social history:: Smoking status: Patient reports use of chewing tobacco. Screenin:[facility] ED Fall Risk Assessment (Adult) History of falling in the last 3 months, jb4 including since admission No falls in past 3 months (0 pts) Confusion or Disorientation No (0 pts) Intoxicated or Sedated No (0 pts) Impaired Gait No (0 pts) Mobility Assist Device Used No (0 pt) Altered Elimination No (0 pt) Score/Fall Risk Level 0 - 2 = Low Risk Oriented to surroundings, Maintained a safe environment. Abuse screen: Denies threats or abuse. Nutritional screening: No deficits noted. Tuberculosis screening: No symptoms or risk factors identified. Assessment: 16:56 General: Appears in no apparent distress. comfortable, Behavior is calm, cooperative, jb4 appropriate for age. Pain: Complains of pain in RIGHT RIBS Pain currently is 5 out of 10 on a pain scale. Quality of pain is described as sharp. Neuro: Level of Consciousness is awake, alert, obeys commands, Oriented to person, place, time, situation. Cardiovascular: Patient's skin is warm and dry. Rhythm is sinus bradycardia. Respiratory: Airway is patent Respiratory effort is even, unlabored, Respiratory pattern is regular, symmetrical. Derm: Skin is intact, Skin is pink, warm \T\ dry. Musculoskeletal: Circulation, motion, and sensation intact. Range of motion: intact in all extremities. 18:00 Reassessment: Patient appears in no apparent distress at this time. Patient and/or jb4 family updated on plan of care and expected duration. Pain level reassessed. Patient is alert, oriented x 3, equal unlabored respirations, skin warm/dry/pink. 19:45 Reassessment: Patient appears in no apparent distress at this time. Patient and/or jb4 family updated on plan of care and expected duration. Pain level reassessed. Patient is alert, oriented x 3, equal unlabored respirations, skin warm/dry/pink. 21:00 Reassessment: Patient appears in no apparent distress at this time. Patient and/or jb4 family updated on plan of care and expected duration. Pain level reassessed. Patient is alert, oriented x 3, equal unlabored respirations, skin warm/dry/pink. Vital Signs: 14:32 BP 140 / 78; Pulse 60; Resp 17; Temp 98.5; Pulse Ox 96% ; Weight 90.72 kg; Height 5 ft. me1 6 in. ; Pain 2/10; 16:56 BP 158 / 72; Pulse 59; Resp 16; Pulse Ox 96% on R/A; jb4 18:00 BP 135 / 76; Pulse 59; Resp 16; Pulse Ox 95% on R/A; jb4 19:45 BP 137 / 64; Pulse 59; Resp 16; Pulse Ox 95% on R/A; jb4 20:09 Weight 93.3 kg (M); jb4 21:00 BP 141 / 58; Pulse 66; Resp 16; Pulse Ox 94% on R/A; jb4 14:32 Body Mass Index 32.28 (93.30 kg, 167.64 cm) nv1 14:32 Pain Scale: Adult nv1 ED Course: 14:08 Patient arrived in ED. cj3 14:13 Dal[facility] Romero[facility] 14:13 Maurizio Maxwell MD is Attending Physician. kb 14:35 Triage completed. me1 14:35 Arm band placed on Patient placed in waiting room. me1 14:59 XRAY Chest (1 view) In Process Unspecified. EDMS 16:40 Matt Marion, RN is Primary Nurse. jb4 16:56 Patient has correct armband on for positive identification. Bed in low position. Call jb4 light in reach. Side rails up X 1. Provided Education on: PLAN OF CARE. 16:56 Missed attempt(s): 20 gauge in right antecubital area. 22 gauge in right upper arm. jb4 Bleeding controlled, band aid applied, catheter tip intact. 16:59 Basic Metabolic Panel Sent. jb4 16:59 CBC with Diff Sent. jb4 16:59 D-Dimer Sent. jb4 16:59 LFT's Sent. jb4 16:59 Magnesium Sent. jb4 16:59 NT PRO-BNP Sent. jb4 16:59 Troponin HS Sent. jb4 16:59 Lipase Sent. jb4 19:19 CT Chest For PE Angio In Process Unspecified. EDMS 20:02 Prince Adams MD is Hospitalizing Provider. kb 01/19 01:30 notified receiving nurse of Ptt 179.2. jb4 01:40 No provider procedures requiring assistance completed. Patient admitted, IV remains in jb4 place. Administered Medications: 01/18 20:33 Drug: Heparin (DVT/PE Drip) 18 units/kg/[place] - ([place] [address] units, D5W IV 500 ml) IV jb4 at calculated rate Per protocol; Max initial rate 1800 units/hr {Co-Signature: dd2 (GIAN MACEDO RN).} Route: IV; Rate: calculated rate; Site: right forearm; 01/19 01:40 Follow up: IV Status: Infusion continued upon admission jb4 01/18 20:34 Drug: Heparin (DVT/PE- Bolus per protocol) - HEParin IVP 80 units/kg IVP once; Max jb4 8,000 units {Co-Signature: dd2 (GIAN MACEDO RN).} Route: IVP; Site: right forearm; 01/19 01:40 Follow up: Response: No adverse reaction jb4 Medication: 01/18 16:56 VIS not applicable for this client. jb4 Outcome: 20:02 Decision to Hospitalize by Provider. scot 01/19 01:40 Admitted to Tele accompanied by nurse, via stretcher, room 430, with chart, jb4 Condition: stable Discharge instructions given to patient, Instructed on the need for admit, Demonstrated understanding of instructions, 01:41 Patient left the ED. jb4 Signatures: Dispatcher [employer] EDDalila Sigala, CATH LAB TECHNOLOGIST-C CATH LAB TECHNOLOGIST-Matt Wen RN RN jb4 Agatha Antoine RN RN me1 Courtney Vaughan cj3 GIAN MACEDO RN dd2 Corrections: (The following items were deleted from the chart) 01/18 14:38 14:35 Social history: Smoking status: Patient reports use of chewing tobacco. Patient me1 denies any tobacco usage or history of. me1
--- NOTE | 2025-01-18 20:02 | EDPHYS ---
Physician Documentation [facility] Name: Joey Campos III Age: 74 yrs Sex: Male : 1950 Arrival Date: 01/18/2025 Time: 14:02 Bed 23 Private MD: ED Physician Maurizio Maxwell HPI: 01/18 21:33 This 74 yrs old Male presents to ER via Ambulatory with complaints of Breathing kb Difficulty, Pain All Over. 21:33 Pt is a 74 year old male who presents for right sided chest pain that started 3 days kb ago. States he only has the pain with inspiration. Denies shortness of breath. Historical: - Allergies: 14:35 No Known Allergies; me1 - PMHx: 14:35 Hyperlipidemia; Hypertension; Hypothyroidism; me1 - PSHx: 14:35 Cholecystectomy; Left BKA; me1 - Immunization history:: Adult Immunizations up to date. - Infectious Disease History:: Denies. - Social history:: Smoking status: Patient reports use of chewing tobacco. ROS: 16:49 Constitutional: As per HPI kb Exam: 16:48 Constitutional: This is a well developed, well nourished patient who is awake, alert, kb and in no acute distress. Head/Face: Normocephalic, atraumatic. ENT: Moist Mucous membranes Chest/axilla: Normal chest wall appearance and motion. Cardiovascular: Regular rate Respiratory: Respirations even and unlabored. No increased work of breathing. Talking in full sentences Abdomen/GI: Soft, non-tender. No distention Skin: Warm, dry with normal turgor. Normal color. MS/ Extremity: Pulses equal, no cyanosis. Neurovascular intact. Full, normal range of motion. Neuro: Awake and alert, GCS 15, oriented to person, place, time, and situation. 16:48 ECG was reviewed by the Attending Physician. Vital Signs: 14:32 BP 140 / 78; Pulse 60; Resp 17; Temp 98.5; Pulse Ox 96% ; Weight 90.72 kg; Height 5 ft. me1 6 in. ; Pain 2/10; 16:56 BP 158 / 72; Pulse 59; Resp 16; Pulse Ox 96% on R/A; jb4 18:00 BP 135 / 76; Pulse 59; Resp 16; Pulse Ox 95% on R/A; jb4 19:45 BP 137 / 64; Pulse 59; Resp 16; Pulse Ox 95% on R/A; jb4 20:09 Weight 93.3 kg (M); jb4 21:00 BP 141 / 58; Pulse 66; Resp 16; Pulse Ox 94% on R/A; jb4 14:32 Body Mass Index 32.28 (93.30 kg, 167.64 cm) me1 14:32 Pain Scale: Adult me1 MDM: 14:13 Medical Screening Exam initiated kb 18:19 Data reviewed: vital signs, nurses notes. kb 21:32 Differential diagnosis: CHF exacerbation, Myocardial Infarction pneumonia, pulmonary kb edema, Pulmonary Embolism. Consideration of Admission/Observation Patient was admitted/placed on observation. Escalation of care including admission/observation considered. Management of patient was discussed with the following: Hospitalist: Dr Shook accepts pt for admission. Management of patient was discussed with the following: Dr Yancey recommends heparin drip. Historians other than the Patient: Spouse/Significant Other: . Historians other than the Patient:. Counseling: I had a detailed discussion with the patient and/or guardian regarding the historical points, exam findings, and any diagnostic results supporting the discharge/admit diagnosis, lab results, radiology results, the need for further work-up and treatment in the hospital. 01/18 14:41 Order name: Basic Metabolic Panel; Complete Time: 17:29 kb 01/18 14:41 Order name: CBC with Diff; Complete Time: 18:29 kb 01/18 14:41 Order name: D-Dimer; Complete Time: 18:13 kb 01/18 14:41 Order name: LFT's; Complete Time: 17:29 kb 01/18 14:41 Order name: Magnesium; Complete Time: 17:29 kb 01/18 14:41 Order name: NT PRO-BNP; Complete Time: 17:29 kb 01/18 14:41 Order name: Troponin HS; Complete Time: 17:29 kb 01/18 14:41 Order name: Lipase; Complete Time: 17: kb 01/18 20:00 Order name: Protime (+inr); Complete Time: 20:29 kb 01/18 20:00 Order name: Ptt, Activated; Complete Time: 20:29 kb 01/18 20:43 Order name: Magnesium EDMS 01/18 20:43 Order name: Phosphorus EDMS 01/18 20:43 Order name: Urinalysis w/ reflexes EDMS 01/18 20:43 Order name: Basic Metabolic Panel EDMS 01/18 20:43 Order name: Basic Metabolic Panel EDMS 01/18 20:43 Order name: CBC with Automated Diff EDMS 01/18 20:43 Order name: CBC with Automated Diff EDMS 01/19 00:22 Order name: Ptt, Activated jb4 01/19 01:29 Order name: PTT, Activated Partial Thromb EDMS 01/18 14:41 Order name: XRAY Chest (1 view); Complete Time: 15:46 kb 01/18 18:13 Order name: CT Chest For PE Angio; Complete Time: 20:01 kb 01/18 20:43 Order name: Echo with Doppler EDMS 01/18 14:41 Order name: Cardiac monitoring; Complete Time: 16:40 kb 01/18 14:41 Order name: EKG - Nurse/Tech; Complete Time: 16:40 kb 01/18 14:41 Order name: IV Saline Lock; Complete Time: 17:54 kb 01/18 14:41 Order name: Labs collected and sent; Complete Time: 16:59 kb 01/18 14:41 Order name: O2 Per Protocol; Complete Time: 16:30 kb 01/18 14:41 Order name: O2 Sat Monitoring; Complete Time: 16:29 kb 01/18 17:07 Order name: Labs - recollect needed: recollect blue top; Complete Time: 17:54 bd 01/18 17:15 Order name: Labs - recollect needed: recollect lavender top; Complete Time: 18:24 bd EC:48 Rate is 59 beats/min. Rhythm is regular. QRS [place] is Normal. MI interval is normal at kb 156 msec. QRS interval is normal at 94 msec. QT interval is normal at 431 msec. Administered Medications: 20:33 Drug: Heparin (DVT/PE Drip) 18 units/kg/[place] ([place] [address] units, D5W IV 500 ml) IV jb4 at calculated rate Per protocol; Max initial rate 1800 units/hr {Co-Signature: dd2 (GIAN MACEDO RN).} Route: IV; Rate: calculated rate; Site: right forearm; 01/19 01:40 Follow up: IV Status: Infusion continued upon admission jb4 01/18 20:34 Drug: Heparin (DVT/PE- Bolus per protocol) - HEParin IVP 80 units/kg IVP once; Max jb4 8,000 units {Co-Signature: dd2 (GIAN MACEDO RN).} Route: IVP; Site: right forearm; 01/19 01:40 Follow up: Response: No adverse reaction jb4 Disposition Summary: 01/18/25 20:02 Hospitalization Ordered Notes: Hospitalization Status: Observation kb Provider: Prince scot Adams Location: Telemetry/MedSurg (observation) kb Condition: Stable kb Problem: new kb Symptoms: are unchanged kb Bed/Room Type: Standard Room Assignment: 430(01/18/25 23:37) kl Diagnosis - Pulmonary embolism without acute cor pulmonale kb Forms: - Medication Reconciliation Form kb - SBAR form kb - Leadership Thank You Letter kb Addendum: 01/20/2025 07:35 Co-signature as Attending Physician, Maurizio Maxwell MD I reviewed the patient's care r n provided by the Advanced Practice Provider and agree with the diagnosis and treatment plan. Signatures: Dispatcher [employer] Dalila Coe, BREWERY PUMPER-C BREWERY PUMPER-Ckb Kathy Lal Kimberly RN Maurizio Macias MD MD rn Bryson, James, RN RN jb4 Agatha Antoine RN RN me1 GIAN MACEDO RN dd2 Corrections: (The following items were deleted from the chart) 01/18 14:38 14:35 Social history: Smoking status: Patient reports use of chewing tobacco. Patient me1 denies any tobacco usage or history of. me1 14:41 14:41 BASIC METABOLIC PANEL+C.LAB.BRZ ordered. EDMS EDMS 14:41 14:41 CBC+H.LAB.BRZ ordered. EDMS EDMS 14:41 14:41 D-DIMER+COAG.LAB.BRZ ordered. EDMS EDMS 14:41 14:41 HEPATIC FUNCTION+C.LAB.BRZ ordered. EDMS EDMS 14:41 14:41 MAGNESIUM+C.LAB.BRZ ordered. EDMS EDMS 14:41 14:41 PROBNP+C.LAB.BRZ ordered. EDMS EDMS 14:41 14:41 Troponin High Sensitivity+C.LAB.BRZ ordered. EDMS EDMS 14:41 14:41 LIPASE+C.LAB.BRZ ordered. EDMS EDMS 14:41 14:41 Chest Single View+RAD.RAD.BRZ ordered. EDMS EDMS 18:13 18:13 Chest For PE Angio+CT.RAD.BRZ ordered. EDMS EDMS 23:37 20:02 kb kl
[2025-01-18 20:20] LABS: Protime INR 1.06
[2025-01-18] MEDS ORDERED: HEPARIN 5000 UNIT/ML 1 ML VIAL ONE (20:23)
[2025-01-18] MEDS ORDERED: HEPARIN/D5W 25,000 UNIT/500 ML BAG IV ONE (20:24)
[2025-01-18] MEDS ORDERED: IPRATROPIUM BROM 0.5MG/2.5ML NEB PRN (20:39)
[2025-01-18] MEDS ORDERED: ONDANSETRON 4 MG/2 ML VIAL IV PRN (20:39)
[2025-01-18] MEDS ORDERED: ALBUTEROL 2.5 MG/3 ML NEB SOL NEB PRN (20:39)
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
[2025-01-18 23:48] VITALS: BMI 33.2
[2025-01-19 00:15] VITALS: O2SAT 97
[2025-01-19] MEDS ORDERED: HEPARIN/D5W 25,000 UNIT/500 ML BAG IV SCH (03:00)
[2025-01-19 06:59] LABS: Absolute Basophils 0.1 K/uL (0-0.5); Absolute Eosinophils 0.4 K/uL (0-0.5); Absolute Lymphocytes (CBC) 3.5 K/uL (0.7-4.9); Absolute Neutrophil 6.4 K/uL (1.8-8.0); Basophils % 1.1 % (0-1.3); Eosinophils % 3.1 % (0-4.4); Hematocrit 40.5 % (39.6-49.0); Hemoglobin 13.7 g/dL (13.6-17.9); Lymphocytes % 30.7 % (15.3-44.8); MCH 31.9 pg (27.0-35.0); MCHC 33.7 g/dL (32.0-36.0); MCV 94.7 fL (80-100); MPV 7.9 fL (7.6-11.3); Monocytes % 8.9 % (3.3-12.3); Neutrophils % 56.2 % (41.7-73.7); Nucleated Red Blood Cells % 0.3 % (0-0); Platelets 165 thou/uL (152-406); RBC Red Blood Cell Count 4.28 M/uL (4.33-5.43)
[2025-01-19 07:20] LABS: Magnesium 2.4 mg/dL (1.6-2.4); Phosphorus 3.2 mg/dL (2.5-4.9)
[2025-01-19 07:25] LABS: Anion Gap 10.4 mEq/L (5.0-15.0); Potassium 3.4 mEq/L (3.5-5.1)
[2025-01-19 08:05] VITALS: TEMP 98.1
[2025-01-19] MEDS: HYDROCODONE/APAP 10/325 TAB PO SCH (09:00)
[2025-01-19] MEDS: ASPIRIN 81 MG CHEWABLE TABLET PO SCH (09:01)
[2025-01-19] MEDS: APIXABAN 5 MG TABLET PO SCH (09:01)
[2025-01-19] MEDS: POTASSIUM CL SA 10 MEQ TAB PO ONE (09:02)
[2025-01-19] MEDS: LEVOTHYROXINE SOD 0.1 MG TAB PO SCH (09:06)
[2025-01-19] MEDS: OXcarbazepine 150 MG TAB PO SCH (09:08)
[2025-01-19 12:04] VITALS: BP 125/69
--- NOTE | 2025-01-19 12:45 | P.CNS ---
Date of Consult: 01/19/25 Reason for Consult: Pulmonary embolism Chief Complaint: Acute PE History of Present Illness: Patient is 74 years of age admitted with right-sided chest pain some shortness of breath that started on Friday. With pulmonary embolism prior history of thromboembolism patient does not have any risk factors feeling a little better hemodynamically stable Allergies No Known Allergies Allergy (Unverified 01/18/25 20:49) Home Medications: Aspirin 1 tab PO DAILY 01/19/25 Hydrocodone Bit/Acetaminophen [[place] 10-325 Tablet] 1 tab PO DAILY 01/19/25 Levothyroxine [Synthroid*] 1 tab PO DAILY 01/19/25 Losartan Potassium 1 tab PO DAILY 01/19/25 Montelukast Sodium [Singulair] 1 tab PO BEDTIME 01/19/25 OXcarbazepine [Trileptal] 1 tab PO BEDTIME 01/19/25 OXcarbazepine [Trileptal] 1 tab PO DAILY 01/19/25 Omeprazole [Prilosec] 1 tab PO DAILY 01/19/25 Pregabalin [Lyrica*] 1 cap PO BEDTIME 01/19/25 Rosuvastatin Calcium [Crestor] 1 tab PO BEDTIME 01/19/25 hydroCHLOROthiazide [Hydrochlorothiazide] 1 tab PO DAILY 01/19/25 - Past Medical/Surgical History -: Hyperlipidemia -: HTN -: Hypothyroidism -: Cholecystectomy -: Left BKA - Social History Place of Residence: Home Review of Systems 10-point ROS is otherwise unremarkable Respiratory: Shortness of Breath, Pleuritic Pain Physical Examination Temp Pulse Resp BP Pulse Ox 98.1 F 56 18 125/69 95 01/19/25 12:00 01/19/25 12:00 01/19/25 12:00 01/19/25 12:00 01/19/25 12:00 General: Alert, Oriented x3 HEENT: Atraumatic Neck: Supple Respiratory: Clear to auscultation bilaterally Cardiovascular: No edema, Regular rate/rhythm, Normal S1 S2, Abnormal S3 Gastrointestinal: Normal bowel sounds, Soft and benign Laboratory Data (last 24 hrs) 01/18/25 01/18/25 01/18/25 18:03 17:50 16:50 WBC 10.10 Hgb 14.2 Hct 42.1 Plt Count 160 PT 12.0 INR 1.06 APTT 28.0 Sodium 141 Potassium 3.9 BUN 11 Creatinine 1.20 Glucose 99 Magnesium 2.2 Total Bilirubin 0.6 AST 26 ALT 37 Alkaline Phosphatase 122 H Lipase 20 - Problems (1) Acute pulmonary embolism Current Visit: Yes Status: Acute Plan: Patient is 74 years of age admitted with pulmonary embolism doing well hemodynamically stable oxygenation satisfactory patient's labs reviewed scan reviewed change patient to Eliquis need a minimum of 3 months or longer patient is stable to discharge ambulate Qualifiers: Acute cor pulmonale presence: unspecified
--- NOTE | 2025-01-19 13:21 | P.PN ---
Date of Service: 01/19/25 Subjective: ROS: 10 point ROS as noted above, otherwise negative Physical Exam: GEN: Alert, oriented, NAD CV: Regular rate and rhythm, no edema Pulm: Nonlabored respirations on room air, clear bilaterally ABD: soft, nontender, nondistended Integumentary: No rashes Neuro: Normal speech, normal affect Problem List: Multiple acute pulmonary Emboli Hypertension Hypothyroidism Bipolar disorder VTE: Code: Full Dispo: Home Time Spent Managing Pts Care (In Minutes): 55
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
[2025-01-19] MEDS ORDERED: OXcarbazepine 150 MG TAB PO SCH (21:00)
[2025-01-19] MEDS ORDERED: MONTELUKAST 10 MG TAB PO SCH (21:00)
[2025-01-19] MEDS ORDERED: ROSUVASTATIN 10 MG TAB PO SCH (21:00)
[2025-01-19] MEDS ORDERED: PREGABALIN 75 MG CAP PO SCH (21:00)
--- NOTE | 2025-01-20 07:29 | ECHO ---
HEIGHT: 5 ft 6 in WEIGHT: 205 lb 11.061 oz DATE OF STUDY: 01/19/[address]: Prince Traci Adams MD 2-DIMENSIONAL: YES M.MODE: YES DOPPLER: YES COLOR FLOW: YES TDS: PORTABLE: YES DEFINITY: BUBBLE STUDY: DIAGNOSIS: PULMONARY EMBOLISM, RULE OUT RIGHT VENTRICULAR STRAIN CARDIAC HISTORY: CATHERIZATION: YES SURGERY: PROSTHETIC VALVE: PACEMAKER: MEASUREMENTS (cm) DIASTOLIC (NORMALS) SYSTOLIC (NORMALS) IVSd 0.8 (0.6-1.2) LA Diam 2.8 (1.9-4.0) LVEF 60-65% LVIDd 3.4 (3.5-5.7) LVIDs 2.2 (2.0-3.5) %FS 35% LVPWd 1.0 (0.6-1.2) Ao Diam 2.5 (2.0-3.7) 2 DIMENSIONAL ASSESSMENT: RIGHT ATRIUM: NORMAL LEFT ATRIUM: NORMAL RIGHT VENTRICLE: NORMAL LEFT VENTRICLE: NORMAL TRICUSPID VALVE: TRACE TRICUSPID REGURGITATION MITRAL VALVE: NORMAL PULMONIC VALVE: NORMAL AORTIC VALVE: NORMAL PERICARDIAL EFFUSION: NONE AORTIC ROOT: NORMAL LEFT VENTRICULAR WALL MOTION: NORMAL DOPPLER/COLOR FLOW: NORMAL COMMENTS: 1. NORMAL LEFT VENTRICULAR SYSTOLIC FUNCTION, EJECTION FRACTION 60-65%, NORMAL WALL MOTION 2. NORMAL RIGHT VENTRICULAR SYSTOLIC FUNCTION TECHNOLOGIST: TRAVIS GRAY
--- NOTE | 2025-01-20 08:41 | EKG ---
Test Date: 2025-01-18 Test Time: 16:38:37 Front Desk Coordinator: RIVKA MEASUREMENT RESULTS: Intervals: Rate: 59 MT: 156 QRSD: 94 QT: 436 QTc: 431 [place]: P: 53 MT: 156 QRS: -2 T: 19 INTERPRETIVE STATEMENTS: Sinus bradycardia Otherwise normal ECG Compared to ECG 10/21/2015 12:07:42 No significant changes Electronically Signed On 01-20-25 08:36:59 CDT by Biju Melvin
== END 2025-01-19 15:27 | disposition home or self-care (01) | DRG 176 ==
LOC: ER 14:02 → ERHOLD 20:39 → 4TH 01-19 01:01
PROVIDERS: ADMIT Internal Medicine; ATTEND Hospitalist
DX: I26.99 Other pulmonary embolism without acute cor pulmonale (principal); E03.9 Hypothyroidism, unspecified; Z89.512 Acquired absence of left leg below knee; E78.5 Hyperlipidemia, unspecified; Z90.49 Acquired absence of other specified parts of digestive tract; F31.9 Bipolar disorder, unspecified
CPT/HCPCS: 36415; 71045; 71275; 80048; 80076; 83690; 83735; 83880; 84100; 84484; 85025; 85379; 85610; 85730; 93005; 93306; J1644; Q9967